=== PATIENT | female | born 1970 | race Caucasian/White ===

== ENCOUNTER → 2020-02-19 | Emergency (ER) | payer BC ==
[~2020-02-19] VITALS: Ht 170.2 cm; Wt 77.1 kg
[~2020-02-19] MED LIST: ACETAMINOPHEN500 MG PO; AMLODIPINE BES2.5 MG PO; DILAUDID4 MG PO; ESTROGEN-METHY1 EACH PO; HYDROMORPHONE HC4 MG PO; LANTUS SOL100 UNIT/1 SUB-Q; LISINOPRIL20 MG PO; NOVOLOG FL100 UNIT/1 SUB-Q; PERCOCET 5-3251 EACH PO; PERCOCET 7.5-31 EACH PO; SIMVASTATIN20 MG PO; TYLENOL EXTRA500 MG PO; TYLENOL PM EX-1 EACH PO; VITAMIN D10000 UNIT PO; VIVELLE-DOT1 PATC1 TD; ZANAFLEX4 MG PO
--- OUTSIDE RECORDS SUMMARY | 2020-02-19 21:26 | XMS ---
PreManage Notification: CHRIS CHÁVEZ [employer] Events No recent Security Events currently on file CRITERIA MET - [facility] - 2 Visits in 30 Days CARE PROVIDERS [facility] Current PHONE: [phone] Anabel has no Care Guidelines for this patient. E.Arnie VISIT COUNT (12 MO.) 1 Murali Morrison [facility] TOTAL 2 NOTE: Visits indicate total known visits. ED/UCC VISIT TRACKING (12 MO.) 02/19/2020 21:24 [facility]ANNA [facility] TYPE: Emergency COMPLAINT: - LOW BLOOD PRESSURE 02/11/2020 09:05 Murali BAUTISTA [facility] TYPE: Emergency DIAGNOSES: - Anxiety disorder, unspecified - Chest pain, unspecified - chest pain INPATIENT VISIT TRACKING (12 MO.) No inpatient visits to display in this time frame [email or web address]
== END ==
LOC: ED 21:23
DX: I95.9 Hypotension, unspecified (principal); E11.9 Type 2 diabetes mellitus without complications; Z87.891 Personal history of nicotine dependence; Z79.899 Other long term (current) drug therapy; Z79.891 Long term (current) use of opiate analgesic; Z79.4 Long term (current) use of insulin
CPT/HCPCS: 80053; 83735; 84484; 85025; 99284; J7030

== ENCOUNTER 2020-07-30 17:59 | Emergency (ER) | payer BC ==
[~2020-07-30] VITALS: Ht 170.2 cm; Wt 77.1 kg
--- OUTSIDE RECORDS SUMMARY | 2020-07-30 18:02 | XMS ---
PreManage Notification: CHRIS CHÁVEZ Security [employer] Events No recent Security Events currently on file CRITERIA MET - PDMP CARE PROVIDERS ARIADNA [facility] Current PHONE: [phone] Anabel has no Care Guidelines for this patient. EPaz VISIT COUNT (12 MO.) 1 Murali Bueno TOTAL 3 NOTE: Visits indicate total known visits. ED/C VISIT TRACKING (12 MO.) 07/30/2020 18:00 ARIANNA Rizo [facility] TYPE: Emergency COMPLAINT: - NECK PAIN 02/19/2020 21:24 ARIANNA [facility]izo [facility] TYPE: Emergency COMPLAINT: - LOW BLOOD PRESSURE DIAGNOSES: - Type 2 diabetes mellitus without complications - Other fatigue - Personal history of nicotine dependence - termite exterminator helper (current) use of insulin - FDC (current) use of opiate analgesic - Hypotension, unspecified - Other care home (current) drug therapy 02/11/2020 09:05 Murali BAUTISTA OR TYPE: Emergency DIAGNOSES: - Anxiety disorder, unspecified - Chest pain, unspecified - chest pain INPATIENT VISIT TRACKING (12 MO.) No inpatient visits to display in this time frame [email or web address]
[2020-07-30] MEDS ORDERED: ZOLPIDEM TARTRA10 MG PO (18:24)
[2020-07-30] MEDS ORDERED: OXYCODONE HCL5 MG PO (18:24)
[2020-07-30] MEDS ORDERED: IBUPROFEN400 MG PO (18:25)
[2020-07-30] MEDS ORDERED: DILAUDID4 MG PO (20:02)
[2020-07-30] MEDS ORDERED: MEDROL4 M1 PO (20:04)
== END 2020-07-30 20:50 | disposition home or self-care (01) ==
LOC: ED 17:59
DX: G89.18 Other acute postprocedural pain (principal); M79.601 Pain in right arm; M79.602 Pain in left arm; E11.9 Type 2 diabetes mellitus without complications; Z87.891 Personal history of nicotine dependence; Z79.899 Other long term (current) drug therapy; Z79.4 Long term (current) use of insulin
CPT/HCPCS: 72125; 85025; 96374; 96375; 96376; 99284-25; J1100; J1170; J2270